=== PATIENT | male | born 1980 | race Two or more races ===

== ENCOUNTER 2022-05-04 22:47 | Inpatient (IN) | payer MEDICAID ==
[~2022-05-04] VITALS: Ht 170.2 cm; Wt 68.9 kg
[2022-05-04 23:10] VITALS: BP 108/66
--- NOTE | 2022-05-04 23:40 | NUR ---
Pt was brought in by EMS from [facility] into Med Surg at approximately 2310. Pt is A&Ox4 and is cooperative. Pt is stable. No S/S of distress. Pt is able to ambulate. ] Upon physical assessment, Pt's skin is intact. Pt's right ankle is swollen, with 3+ edema being around the lower leg and foot. When asked about this, Pt stated he "[place] the beach 3 [place] and sprained his ankle." Will put in a PT consult regarding this matter. Eyes are yellow. Pt's abdomen is large and distended, but soft and non-tender. Pt stated he last had a BM "2 days ago." Pt on Rm Air. Safety measures in place. Will continue to monitor.
[2022-05-05] VITALS: BP 106/72
[2022-05-05] MEDS ORDERED: MORPHINE SULFATE 2 MG/1 ML DISP.SYRIN IV PRN (00:30)
[2022-05-05] MEDS ORDERED: ACETAMINOPHEN 325 MG TABLET PO PRN ×2 (00:30→07:45)
[2022-05-05] MEDS ORDERED: ONDANSETRON 4 MG/2 ML VIAL IV PRN (02:15)
[2022-05-05] MEDS: PANTOPRAZOLE SODIUM 40 MG TABLET.DR PO SCH (06:02)
[2022-05-05 06:15] VITALS: BP 101/55
--- NOTE | 2022-05-05 07:05 | NUR ---
End of shift Note: Received Pt from Day shift. Pt is A&O x4 and cooperative. No S&S of distress. Pt is stable. Will inform Day shift about Pt's right leg/ankle. Safety measures in place.
[2022-05-05 08:00] VITALS: BP 100/70
[2022-05-05 08:00] LABS: HEMATOCRIT 29.7 % (36.7-47.1); MEAN CORPUSCULAR HEMOGLOBIN 35.8 uug (23.8-33.4); MEAN CORPUSCULAR VOLUME 102.2 fL (73.0-96.2); PLATELET COUNT (AUTO) 323 K/uL (152-348)
[2022-05-05 08:34] LABS: ALANINE AMINOTRANSFERASE < 6 U/L (16-63); ALKALINE PHOSPHATASE 150 U/L (50-136); ASPARTATE AMINOTRANSFERASE 67 U/L (15-37); BILIRUBIN,TOTAL 18.1 mg/dL (0.2-1.0); CARBON DIOXIDE 24 mmol/L (21-32); CHLORIDE 97 mmol/L (98-107); LIPASE 532 U/L (73-393); MAGNESIUM 1.9 mg/dL (1.8-2.4); PHOSPHOROUS 2.2 mg/dL (2.5-4.9); TOTAL PROTEIN, SERUM 6.7 g/dL (6.4-8.2); UREA NITROGEN, BLOOD < 1 mg/dL (7-18)
[2022-05-05 09:16] LABS: POTASSIUM 2.6 mmol/L (3.5-5.1)
[2022-05-05 09:28] LABS: CHOLESTEROL < 50 mg/dL (<200)
[2022-05-05 09:42] LABS: HDL CHOLESTEROL < 10 mg/dL (40-60)
[2022-05-05 10:35] LABS: CREATININE 0.6 mg/dL (0.6-1.3); GLUCOSE 86 mg/dL (74-106); TRIGLYCERIDES 208 MG/DL (30-150)
[2022-05-05 10:52] VITALS: BP 101/60
--- NOTE | 2022-05-05 11:05 | NUR ---
lab calls in potassium level of 2.6.dr cox called.
[2022-05-05] MEDS ORDERED: THIAMINE HCL 100 MG TABLET PO SCH (12:45)
[2022-05-05] MEDS: POTASSIUM CHLORIDE 20 MEQ TAB.PRT.SR PO SCH ×2 (13:47→16:53)
[2022-05-05] MEDS: LACTULOSE 20 G/30 ML LIQUID UDC PO SCH ×2 (13:47→21:06)
[2022-05-05] MEDS: CEFTRIAXONE 1 G in IV DEXTROSE 5% 50 ML IV SCH (13:48)
[2022-05-05] MEDS ORDERED: MVI ADULT 10 ML VIAL=1 AMP 10 ML, THIAMINE HCL INJ 100 MG, FOLIC ACID 1 MG, MAGNESIUM S... IV SCH ×5 (14:00)
[2022-05-05] MEDS ORDERED: CALCIUM GLUCONATE IV 2 GM in IV NORMAL SALINE 100 ML IV ONE (14:00)
[2022-05-05] MEDS: METRONIDAZOLE 500 MG/NS 100ML 500 MG in PREMIXED 1 EACH IV SCH ×2 (14:15→21:21)
[2022-05-05 15:38] VITALS: BP 109/70
[2022-05-05] MEDS ORDERED: NEUTRA PHOS PACKET PO ONE (17:00)
--- NOTE | 2022-05-05 19:40 | NUR ---
Received patient resting comfortably in bed. AAOx4. In no distress or c/o pain. On RA. Left IV site is intact and patent, IVF adequately running. Safety and comfort measures enforced.
[2022-05-05 20:00] VITALS: BP 111/71
[2022-05-06] VITALS: BP 104/61
[2022-05-06 05:33] VITALS: BP 103/54
[2022-05-06] MEDS: PANTOPRAZOLE SODIUM 40 MG TABLET.DR PO SCH (06:03)
[2022-05-06] MEDS: METRONIDAZOLE 500 MG/NS 100ML 500 MG in PREMIXED 1 EACH IV SCH ×3 (06:03→22:36)
[2022-05-06 06:47] LABS: HEMATOCRIT 30.8 % (36.7-47.1); MEAN CORPUSCULAR HEMOGLOBIN 35.1 uug (23.8-33.4); MEAN CORPUSCULAR VOLUME 104.9 fL (73.0-96.2); PLATELET COUNT (AUTO) 327 K/uL (152-348)
[2022-05-06] MEDS ORDERED: IV NS 1000 ML 1,000 ML IV PRN ×2 (07:00→09:15)
[2022-05-06 07:11] LABS: CARBON DIOXIDE 24 mmol/L (21-32); CHLORIDE 101 mmol/L (98-107); CREATININE 0.5 mg/dL (0.6-1.3); GLUCOSE 84 mg/dL (74-106); LIPASE 574 U/L (73-393); MAGNESIUM 2.1 mg/dL (1.8-2.4); POTASSIUM 3.1 mmol/L (3.5-5.1); UREA NITROGEN, BLOOD 4 mg/dL (7-18)
[2022-05-06] MEDS: LACTULOSE 20 G/30 ML LIQUID UDC PO SCH ×2 (09:22→21:44)
[2022-05-06] MEDS: MULTIVIT, IRON, MIN NO. 8, FA TABLET PO SCH (09:22)
[2022-05-06] MEDS: FOLIC ACID 1 MG TABLET PO SCH (09:22)
[2022-05-06] MEDS: THIAMINE HCL 100 MG TABLET PO SCH (09:23)
[2022-05-06] MEDS: METHIMAZOLE 5 MG TABLET PO SCH (09:30)
[2022-05-06 09:44] LABS: BILIRUBIN,DIRECT 12.6 mg/dL (0.0-0.2); BILIRUBIN,TOTAL 16.6 mg/dL (0.2-1.0); TOTAL PROTEIN, SERUM 6.5 g/dL (6.4-8.2)
[2022-05-06] MEDS ORDERED: POTASSIUM CHLORIDE 20 MEQ TAB.PRT.SR PO ONE (11:00)
[2022-05-06 11:40] VITALS: BP 100/59
[2022-05-06] MEDS: CEFTRIAXONE 1 G in IV DEXTROSE 5% 50 ML IV SCH (13:28)
[2022-05-06 15:40] VITALS: BP 120/79
[2022-05-06] MEDS ORDERED: SODIUM PHOSPHATE MM 15 MMOL in IV NORMAL SALINE 250 ML IV ONE (16:00)
--- NOTE | 2022-05-06 18:15 | NUR ---
No signs of distress or c/o pain noted throughout the shift or at this time. IVF running adequately on right IV site. Is SR on , 75. Safety and comfort measures maintained.
[2022-05-06 21:19] VITALS: BP 102/62
[2022-05-07 00:37] VITALS: BP 96/54
[2022-05-07 04:37] VITALS: BP 105/60
[2022-05-07] MEDS: METRONIDAZOLE 500 MG/NS 100ML 500 MG in PREMIXED 1 EACH IV SCH (05:53)
[2022-05-07] MEDS: PANTOPRAZOLE SODIUM 40 MG TABLET.DR PO SCH (06:27)
[2022-05-07 07:23] LABS: CARBON DIOXIDE 22 mmol/L (21-32); CHLORIDE 101 mmol/L (98-107); CREATININE 0.5 mg/dL (0.6-1.3); GLUCOSE 89 mg/dL (74-106); MAGNESIUM 1.8 mg/dL (1.8-2.4); PHOSPHOROUS 2.4 mg/dL (2.5-4.9); UREA NITROGEN, BLOOD 3 mg/dL (7-18)
[2022-05-07 09:12] LABS: BILIRUBIN,TOTAL 15.7 mg/dL (0.2-1.0); TOTAL PROTEIN, SERUM 6.7 g/dL (6.4-8.2)
[2022-05-07 09:20] VITALS: BP 114/70
[2022-05-07] MEDS: THIAMINE HCL 100 MG TABLET PO SCH (09:22)
[2022-05-07] MEDS: MULTIVIT, IRON, MIN NO. 8, FA TABLET PO SCH (09:22)
[2022-05-07] MEDS: METHIMAZOLE 5 MG TABLET PO SCH (09:23)
[2022-05-07] MEDS: LACTULOSE 20 G/30 ML LIQUID UDC PO SCH (09:23)
[2022-05-07] MEDS: FOLIC ACID 1 MG TABLET PO SCH (09:23)
[2022-05-07] MEDS ORDERED: POTASSIUM CHLORIDE 20 MEQ TAB.PRT.SR PO ONE ×2 (11:00→13:00)
[2022-05-07 12:59] VITALS: BP 115/80
[2022-05-07] MEDS: CEFTRIAXONE 1 G in IV DEXTROSE 5% 50 ML IV SCH (13:00)
[2022-05-07] MEDS ORDERED: SPIR50TA5 PO (13:12)
[2022-05-07] MEDS ORDERED: METH5TAB34 PO (13:12)
[2022-05-07] MEDS ORDERED: LACT10SO7 PO (13:12)
[2022-05-07] MEDS ORDERED: PROP20TA7 PO (13:12)
[2022-05-07] MEDS ORDERED: METR500T PO (13:12)
[2022-05-07] MEDS ORDERED: THIA100T13 PO (13:12)
[2022-05-07] MEDS ORDERED: FOLI1TAB94 PO (13:12)
[2022-05-07] MEDS ORDERED: METRONIDAZOLE 500 MG TABLET PO SCH (14:00)
--- NOTE | 2022-05-07 14:45 | NUR ---
RECEIVED PATIENT FROM JOSIAS GORDON RN. PATIENT IS ALERT & ORIENTED X4 AND SPEAKS LAO. PATIENT VOIDS ADEQUATELY AND HAD BOWEL MOVEMENTS. PATIENT TAKES CARE OF HIMSELF INDEPENDENTLY AND WALKS FREQUENTLY. PATIENT TOLERATES PO MEDICATIONS AND DIET WELL. NO ACUTE SIGNS AND SYMPTOMS OF DISTRESS. HOURLY ROUNDING COMPLETED. ALL NEEDS MET AT THIS TIME. MD DISCHARGED PATIENT. BELONGING LISTS SIGNED AND DISCHARGE EDUCATION PROVIDED. DISCHARGE DOCUMENTATION SIGNED. PATIENT VERBALIZED UNDERSTANDING. RN DISCONTINUED IV PER PATIENT REQUEST. IV CATHETER TIP INTACT. IV ANTIBIOTIC NOT GIVEN. PATIENT SISTER CAME TO BUTTON CUTTING MACHINE OPERATOR PATIENT. RN PROVIDED DISCHARGE EDUCATION TO SISTER. SISTER VERBALIZED UNDERSTANDING. PATIENT DISCHARGE TO SISTER IN STABLE CONDITION.
== END 2022-05-07 14:45 | disposition home or self-care (01) | DRG 282 ==
LOC: MEDSURG3 22:47 → TELE3 23:46
PROVIDERS: ADMIT Internal Medicine; ATTEND Internal Medicine
DX: K85.90 Acute pancreatitis without necrosis or infection, unspecified (principal); K76.82 Hepatic encephalopathy; K76.6 Portal hypertension; E83.51 Hypocalcemia; R18.8 Other ascites; E87.1 Hypo-osmolality and hyponatremia; K74.60 Unspecified cirrhosis of liver; E05.90 Thyrotoxicosis, unspecified without thyrotoxic crisis or storm; E80.6 Other disorders of bilirubin metabolism; F10.21 Alcohol dependence, in remission
CPT/HCPCS: 36415; 71045; 76705; 83690; 83735; 84100; 84443; 84484; 85025; 93005; A4663; G0378; J0610; J0696; J2405; J3411; J3475; J3490; J7042